=== PATIENT | male | born 1990 | race African-American/Black ===

== ENCOUNTER 2020-10-08 14:27 | Emergency (ER) | payer MEDICAID ==
[~2020-10-08] VITALS: Ht 177.8 cm; Wt 82.0 kg
[2020-10-08] MEDS ORDERED: SODIUM CHLORIDE 0.9% 1,000 ML IV ONE (16:45)
[2020-10-08 17:12] LABS: BASOPHILS % 0.7 % (0.0-2.0); EOSINOPHILS % 0.2 % (0.0-5.0); HEMATOCRIT. 26.8 % (42.0-52.0); HEMOGLOBIN. 9.3 g/dL (14.0-18.0); LYMPHOCYTES % 17.5 % (20.0-50.0); MEAN CORPUSCULAR HEMOGLOBIN 32.2 pg (28.0-32.0); MEAN CORPUSCULAR VOLUME 92.7 fL (80.0-94.0); MEAN PLATELET VOLUME 7.4 fl (7.4-10.4); MONOCYTES % 11.6 % (2.0-8.0); PLATELET 507 x1000/uL (130-400); RED CELL DISTRIBUTION WIDTH 14.4 % (11.6-14.6)
[2020-10-08 17:14] LABS: CHLORIDE 104 mEq/L (98-107)
[2020-10-08 17:18] LABS: ETHANOL BLOOD < 10 mg/dL
[2020-10-08 17:28] LABS: D-DIMER 14.21 mg/L FEU (<0.50); PROTHROMBIN TIME 10.6 sec (9.6-11.0)
[2020-10-08 17:46] LABS: CLARITY URINE CLEAR (CLEAR); COLOR URINE YELLOW (YELLOW); KETONES URINE TRACE (NEGATIVE); LEUKOCYTE ESTERASE URINE TRACE (NEGATIVE); NITRITE URINE NEGATIVE (NEGATIVE); OCCULT BLOOD URINE NEGATIVE (NEGATIVE); PROTEIN URINE NEGATIVE (NEGATIVE); SPECIFIC GRAVITY URINE 1.028 (1.005-1.030)
[2020-10-08 18:00] LABS: METHADONE URINE SCREEN NEGATIVE (NEGATIVE); OPIATES URINE SCREEN NEGATIVE (NEGATIVE)
[2020-10-08 18:01] LABS: *AMPHETAMINES SCREEN URINE NEGATIVE (NEGATIVE); *BARBITURATES SCREEN URINE NEGATIVE (NEGATIVE); *BENZODIAZEPINES SCREEN URINE NEGATIVE (NEGATIVE); *COCAINE SCREEN URINE NEGATIVE (NEGATIVE); CANNABINOID URINE SCREEN PRESUMTIVE POSITIVE (NEGATIVE); PHENCYCLIDINE URINE SCREEN NEGATIVE (NEGATIVE)
[2020-10-08] MEDS ORDERED: IOHEXOL-350 100 ML BOTTLE ONE (19:25)
[2020-10-08 21:31] VITALS: BP 116/60
== END 2020-10-08 22:28 | disposition home or self-care (01) ==
LOC: ER 14:27
DX: R55 Syncope and collapse (principal)
CPT/HCPCS: 36415; 71045; 71275; 80053; 80305; 80320; 81003; 85025; 85379; 85610; 93005; 93970; 99285; J7030; Q9967; G0480